=== PATIENT | female | born 1940 | race Caucasian/White ===

== ENCOUNTER 2022-03-13 20:40 | Inpatient (IN) | payer BC, OTHER ==
[~2022-03-13] VITALS: Ht 154.9 cm; Wt 55.3 kg
--- NOTE | 2022-03-13 21:20 | NUR ---
[place]. EXERTIONAL SOB X 3 WEEKS. REFERRED BY URGENT CARE. ABNORMAL XRAY AND EKG. PATIENT IS AAOX4, AMBULATING. ABLE TO MAKE NEEDS KNOWN. ATTACHED TO MONITOR. VITALS CHECKED.
--- NOTE | 2022-03-13 21:53 | NUR ---
IV CANNULA G20 INSERTED ON RIGHT AC. BLOOD DRAWN AND SENT TO LAB
--- NOTE | 2022-03-13 21:55 | NUR ---
SUPERVISOR REAL ESTATE OFFICE AT BEDSIDE
[2022-03-13] MEDS ORDERED: FUROSEMIDE 40 MG/4 ML VIAL IV ONE (22:00)
[2022-03-13] MEDS ORDERED: FUROSEMIDE 40 MG/4 ML VIAL ONE (22:19)
[2022-03-13 22:38] LABS: BASOPHILS # (AUTO) 0.1 K/uL (0.0-0.2); EOSINOPHILS % (AUTO) 5.2 % (0.0-6.0); HEMATOCRIT 40 % (33-45); HEMOGLOBIN 12.8 g/dL (11.5-14.8); LYMPHOCYTES # (AUTO) 1.1 K/uL (0.8-4.8); LYMPHOCYTES % (AUTO) 14.1 % (20.0-44.0); MEAN CORPUSCULAR HGB CONC 32 g/dl (31.0-36.0); MEAN CORPUSCULAR VOLUME 86 fL (82-100); MONOCYTES # (AUTO) 0.8 K/uL (0.1-1.30); MONOCYTES % (AUTO) 10.7 % (2.0-12.0); NEUTROPHILS # (AUTO) 5.4 K/uL (1.8-8.9); PLATELET COUNT (AUTO) 281 K/uL (150-450); WHITE BLOOD COUNT (AUTO) 7.8 K/uL (4.3-11.0)
[2022-03-13 22:48] LABS: CALCIUM, SERUM 9.5 mg/dL (8.5-10.1); CARBON DIOXIDE 31 mmol/L (21-32); CHLORIDE 101 mmol/L (98-107); GLUCOSE 100 mg/dL (74-106); POTASSIUM 3.9 mmol/L (3.5-5.1); SODIUM SERUM 138 mmol/L (136-145); UREA NITROGEN, BLOOD 23 mg/dL (7-18)
[2022-03-13 23:00] LABS: ALANINE AMINOTRANSFERASE 41 U/L (12-78); ALBUMIN 3.5 g/dL (3.4-5.0); ALKALINE PHOSPHATASE 202 U/L (46-116); ASPARTATE AMINOTRANSFERASE 26 U/L (15-37); BILIRUBIN,DIRECT 0.3 mg/dL (0.0-0.2); BILIRUBIN,TOTAL 0.8 mg/dL (0.2-1.0); TOTAL PROTEIN, SERUM 7.1 g/dL (6.4-8.2)
[2022-03-13] MEDS ORDERED: AMIO100T PO (23:42)
[2022-03-13] MEDS ORDERED: TORS20TA3 PO (23:42)
[2022-03-13] MEDS ORDERED: ASPI-1420 PO (23:42)
[2022-03-13] MEDS ORDERED: WARF3TAB59 PO (23:42)
[2022-03-13] MEDS ORDERED: OMEP20CA15 PO (23:42)
[2022-03-13] MEDS ORDERED: ATOR40TA PO (23:42)
[2022-03-13] MEDS ORDERED: CARV6.252 PO (23:42)
[2022-03-14] MEDS ORDERED: ASPIRIN 81 MG TAB.CHEW PO ONE
[2022-03-14] MEDS ORDERED: ACETAMINOPHEN 325 MG TABLET PO PRN
[2022-03-14] MEDS ORDERED: ONDANSETRON HCL/PF 4 MG/2 ML VIAL IVP PRN
[2022-03-14] MEDS ORDERED: MORPHINE SULFATE INJ 2 MG/ML DISP.SYRIN IV PRN
[2022-03-14] MEDS ORDERED: WARFARIN SODIUM 1 MG TABLET PO ONE
--- NOTE | 2022-03-14 00:08 | NUR ---
SEEN BY DR LUGO AT BEDSIDE
[2022-03-14] MEDS ORDERED: CARVEDILOL 6.25 MG TABLET ONE (00:18)
[2022-03-14] MEDS ORDERED: WARFARIN SODIUM 1 MG TABLET ONE (00:18)
[2022-03-14] MEDS ORDERED: ATORVASTATIN 40 MG TABLET ONE (00:18)
[2022-03-14] MEDS ORDERED: AMIODARONE HCL 200 MG TABLET ONE (00:18)
[2022-03-14] MEDS ORDERED: ASPIRIN 81 MG TAB.CHEW ONE (00:19)
[2022-03-14] MEDS: AMIODARONE HCL 200 MG TABLET PO SCH ×2 (00:29→08:45)
[2022-03-14] MEDS ORDERED: ALBUTEROL FS 2.5 MG/0.5 ML VIAL.NEB NEB PRN (00:30)
[2022-03-14] MEDS: CARVEDILOL 6.25 MG TABLET PO SCH ×3 (00:30→17:35)
[2022-03-14] MEDS: ATORVASTATIN 40 MG TABLET PO SCH ×2 (00:31→21:40)
--- NOTE | 2022-03-14 00:55 | NUR ---
ECHO DONE AT BEDSIDE
--- NOTE | 2022-03-14 02:51 | NUR ---
REPORT GIVEN TO ALEJANDRO GOODWIN.
--- NOTE | 2022-03-14 03:00 | NUR ---
PATIENT TRANSFERRED TO ROOM
--- NOTE | 2022-03-14 03:45 | NUR ---
HOGSHEAD SALVAGEWAD COMPRESSOR OPERATOR ADJUSTER NOTES: RECEIVED PATIENT AWAKE IN BED VIA GURNEY FROM ER AT 0315, TRANSFER TO ROOM 308-1, NO COMPLAIN OF PAIN AND DISCOMFORT AT THIS TIME, ON ROOM AIR SATURATING WELL, ON TELE MONITOR - AFIB-60 NO SYMPTOMS WAS OBSERVED, SKIN ASSESSMENT DONE AND DOCUMENTED PICTURES TAKEN, INVENTORIES DONE AND SIGNED, IV LINE AT RAC#20SL, PATIENT WAS ORIENTED TO ROOM, BED PLACED IN LOW POSITION CALL LIGHT WITHIN REACH, REMIND PATIENT TO USE CALL LIGHTS WHEN NEEDED ASSISTANCE, PATIENT KEPT CLEAN AND DRY ALL NEEDS MET WILL CONTINUE TO MONITOR
[2022-03-14 05:45] LABS: BASOPHILS % (AUTO) 0.3 % (0.0-2.0); EOSINOPHILS % (AUTO) 5.3 % (0.0-6.0); HEMATOCRIT 37 % (33-45); HEMOGLOBIN 11.7 g/dL (11.5-14.8); LYMPHOCYTES # (AUTO) 0.6 K/uL (0.8-4.8); LYMPHOCYTES % (AUTO) 9.2 % (20.0-44.0); MEAN CORPUSCULAR HGB CONC 32 g/dl (31.0-36.0); MEAN CORPUSCULAR VOLUME 86 fL (82-100); MONOCYTES # (AUTO) 0.9 K/uL (0.1-1.30); MONOCYTES % (AUTO) 14.9 % (2.0-12.0); NEUTROPHILS # (AUTO) 4.4 K/uL (1.8-8.9); NEUTROPHILS % (AUTO) 70.3 % (43.0-81.0); PLATELET COUNT (AUTO) 240 K/uL (150-450); RED BLOOD CELL COUNT(AUTO) 4.29 MIL/uL (4.0-5.2); WHITE BLOOD COUNT (AUTO) 6.3 K/uL (4.3-11.0)
[2022-03-14 06:15] LABS: BILIRUBIN,TOTAL 0.8 mg/dL (0.2-1.0); CALCIUM, SERUM 9.4 mg/dL (8.5-10.1); CREATININE 0.9 mg/dL (0.6-1.3); MAGNESIUM 2.3 mg/dL (1.8-2.4); PHOSPHORUS 4.7 mg/dL (2.5-4.9); POTASSIUM 2.9 mmol/L (3.5-5.1)
--- NOTE | 2022-03-14 06:29 | NUR ---
INFORMATICS EDUCATOR CLOSING NOTES: PATIENT SLEEP IN BED COMFORTABLY, AROUSABLE TO VERBAL STIMULI, BED IN LOW POSITION CALL LIGHTS WITHIN REACH, NO COMPLAIN OF PAIN AND DISCOMFORT AT THIS TIME, ON ROOM AIR SATURATING WELL. PATIENT ON TELE MONITOR-SINUS 60 WITH A PHASING, A FIB, WITH BBB, NO SYMPTOMS WAS OBSERVED, PATIENT KEPT CLEAN AND DRY ALL NEEDS MET ENDORSE TO INCOMING SHIFT.
--- NOTE | 2022-03-14 07:30 | NUR ---
WATERSHED COORDINATOR NOTES PT IN BED, AWAKE, ALERT AND ORIENTED, NO COMPLAINT OF PAIN OR ANY DISCOMFORT, RESPIRATIONS NORMAL, CALL LIGHT WITHIN REACH, NEEDS ATTENDED.
[2022-03-14 08:00] VITALS: BP 120/55
[2022-03-14] MEDS: FUROSEMIDE 40 MG/4 ML VIAL IV SCH ×2 (08:44→17:36)
[2022-03-14] MEDS ORDERED: AMIODARONE HCL 200 MG TABLET PO SCH (09:00)
[2022-03-14] MEDS ORDERED: POTASSIUM CHLORIDE 20 MEQ TAB.PRT.SR PO SCH (10:00)
[2022-03-14] MEDS ORDERED: POTASSIUM CHLORIDE 20 MEQ TAB.PRT.SR PO ONE ×2 (10:00→18:30)
[2022-03-14] MEDS ORDERED: TORS20TA3 PO (10:35)
[2022-03-14] MEDS: MAGNESIUM HYDROXIDE 30 ML UDC PO PRN ×3 (13:19→18:52)
[2022-03-14 16:00] VITALS: BP 123/64
--- NOTE | 2022-03-14 16:12 | NUR ---
BLENDING PLANT OPERATOR NOTES PER DR. CHANDRA, CONTINUE COUMADIN 1.5MG DAILY, NOTED AND CARRIED OUT.
[2022-03-14] MEDS ORDERED: WARFARIN SODIUM 2 MG TABLET PO SCH (17:00)
--- NOTE | 2022-03-14 18:26 | NUR ---
MATERIAL CLERK NOTES PT IN BED, AWAKE, ALERT AND ORIENTED, NO COMPLAINT AT THIS TIME, INFORMED OF PLAN OF CARE, SEEN BY DR. CHANDRA TODAY, POTASSIUM REPLACED, PT RECEIVED TOTAL OF 80MEQ OF POTASSIUM PO, CLARIFIED ORDER WITH DR. AMATO, PM MEDS GIVEN ORDERED.
--- NOTE | 2022-03-14 19:45 | NUR ---
RN NOTES: -RECEIVED AWAKE , AMBULATORY GOING TO THE BATHROOM, ON TELE MONITOR 1ST DEGREE AV BLOCK, PACER A, RATE-68, A/OX4, SMILING VERY FRIENDLY TO STAFF, ORIENTED TO UNIT AND STAFF, BRP, RAC#20 INTACT AND PATENT, NO IVF, NO SIGN OF SOB DURING ACTIVITY ON ROOM AIR SPO2-99%.COUMADIN WAS ON HOLD TODAY TO RESUME AFTER TOMORROW.MONITORED ALSO FOR ANY SIGN OF BLEEDING.
[2022-03-14 20:00] VITALS: BP 138/60
--- NOTE | 2022-03-14 23:11 | NUR ---
RN NOTES: -ABLE TO SLEEP AND REST, KEPT CALL LIGHT WITHIN EASY REACH.
[2022-03-15] VITALS: BP 104/55
[2022-03-15 04:00] VITALS: BP 117/56
[2022-03-15 06:42] LABS: BASOPHILS % (AUTO) 0.5 % (0.0-2.0); EOSINOPHILS % (AUTO) 6.6 % (0.0-6.0); HEMATOCRIT 37 % (33-45); HEMOGLOBIN 11.9 g/dL (11.5-14.8); LYMPHOCYTES # (AUTO) 0.6 K/uL (0.8-4.8); LYMPHOCYTES % (AUTO) 11.2 % (20.0-44.0); MEAN CORPUSCULAR HGB CONC 32 g/dl (31.0-36.0); MEAN CORPUSCULAR VOLUME 86 fL (82-100); MONOCYTES # (AUTO) 0.8 K/uL (0.1-1.30); MONOCYTES % (AUTO) 15.1 % (2.0-12.0); NEUTROPHILS # (AUTO) 3.7 K/uL (1.8-8.9); NEUTROPHILS % (AUTO) 66.6 % (43.0-81.0); PLATELET COUNT (AUTO) 253 K/uL (150-450); RED BLOOD CELL COUNT(AUTO) 4.35 MIL/uL (4.0-5.2); WHITE BLOOD COUNT (AUTO) 5.6 K/uL (4.3-11.0)
--- NOTE | 2022-03-15 06:50 | NUR ---
RN NOTES: ASLEEP IN THE NIGHT, NO COMPLAINTS, NO SOB UPON AMBULATION GOING TO THE BATHROOM, FOR POSSIBLE DISCHARGE TODAY, BLOOD TEST IN THE MORNING, MED COMPLIANT.ENDORSED FOR CONTINUITY OF CARE.
[2022-03-15 07:07] LABS: CALCIUM, SERUM 9.2 mg/dL (8.5-10.1); CREATININE 0.9 mg/dL (0.6-1.3); POTASSIUM 4.2 mmol/L (3.5-5.1)
--- NOTE | 2022-03-15 07:35 | NUR ---
RIB CHOPPER OPENING NOTES RECEIVED PATIENT AWAKE IN BED. PATIENT IS ALERT AND ORIENTED TIMES 4. NO PAIN NOTED. NO SOB NOTED. NO DISTRESS NOTED. ON TELE MONITOR READING SB 59. AMBULATORY. IV ACCESS ON THE RIGHT AC G # 20 SL INTACT. ALL NEEDS ATTENDED. ALL SAFETY MEASURES IN PLACE. BED LOCKED IN THE LOWEST POSITION. CALL LIGHT AND TABLE IN EASY REACH. WILL CONTINUE TO MONITOR.
[2022-03-15 08:00] VITALS: BP 123/61
[2022-03-15] MEDS: FUROSEMIDE 40 MG/4 ML VIAL IV SCH (08:42)
[2022-03-15] MEDS: CARVEDILOL 6.25 MG TABLET PO SCH (08:43)
[2022-03-15] MEDS: AMIODARONE HCL 200 MG TABLET PO SCH (08:45)
[2022-03-15 09:51] LABS: EOSINOPHILS % (MANUAL) 8 % (0-4); LYMPHOCYTES % (MANUAL) 8 % (16-48); MONOCYTES % (MANUAL) 12 % (0-11.0); NEUTROPHILS % (MANUAL) 72 (42-76)
[2022-03-15 12:00] VITALS: BP 113/58
--- NOTE | 2022-03-15 14:50 | NUR ---
FAGOTING MACHINE OPERATOR NOTES DISCHARGE PATIENT IN STABLE CONDITION WITH STABLE VITAL SIGNS. ALL [facility] EDISCHARGE INSTRUCTIONS GIVEN TO THE PATIENT. PATIENT VERBALIZED UNDERSTANDING. PER DR CHANDRA STOP TAKING COUMADIN NOW. CHECK INR IN 4 TO 5 DAYS AFTER DC. FOLLOW UP WITH THE SOUND TECHNICIAN SUPERVISOR IN A WEEK. FOLLOW UP WITH FOR PACE MAKER CHECKS IN A WEEK OF DC. CLARIFIED FOR STOPPING THE COUMADIN WITH DR CHANDRA. ALL THE BELONGINGS ACCOUNTED AND SIGNED FOR. REMOVED IV COVERED WITH DRY DRESSING. NO BLEEDING NOTED. ID BAND REMOVED. AT BED SIDE. WALKED WITH PATIENT, AND STUDENT NURSE WENCESLAO TO THE [facility]. PATIENT LEFT HOSPITAL IN STABLE CONDITION AT 1450 PM. MD AND CHARGE NURSE AWARE OF THE DISCHARGE.
[2022-03-16] MEDS ORDERED: TORSEMIDE 20 MG TABLET PO SCH (09:00)
[2022-03-16] MEDS ORDERED: WARFARIN SODIUM 1 MG TABLET PO SCH (17:00)
== END 2022-03-15 15:00 | disposition home or self-care (01) | DRG 291 ==
LOC: ER 20:50 → TELE 03-14 02:56
PROVIDERS: ADMIT Internal Medicine; ATTEND Internal Medicine
DX: I11.0 Hypertensive heart disease with heart failure (principal); I50.23 Acute on chronic systolic (congestive) heart failure; J96.01 Acute respiratory failure with hypoxia; I48.91 Unspecified atrial fibrillation; Z20.822 Contact with and (suspected) exposure to COVID-19; Z95.0 Presence of cardiac pacemaker; Z95.2 Presence of prosthetic heart valve; Z86.79 Personal history of other diseases of the circulatory system; Z79.01 Long term (current) use of anticoagulants; Z79.82 Long term (current) use of aspirin; E78.5 Hyperlipidemia, unspecified; E87.6 Hypokalemia; Z86.718 Personal history of other venous thrombosis and embolism; I44.0 Atrioventricular block, first degree; R79.1 Abnormal coagulation profile; I05.0 Rheumatic mitral stenosis
CPT/HCPCS: 36415; 71045-TC; 80048-TC; 80053-TC; 80076-TC; 83605-TC; 83735-TC; 83880; 84100-TC; 84484-TC; 85025-TC; 85610-TC; 85730-TC; 87081-TC; 93307-TC; C9803; G0378; J1940